=== PATIENT | female | born 1930 | race Caucasian/White ===

== ENCOUNTER → 2020-09-19 | Outpatient (CLI) | payer MEDICARE ==
[~2020-09-19] VITALS: Ht 154.9 cm; Wt 72.1 kg
[~2020-09-19] MED LIST: LOPRESSOR50 MG PO
== END ==
LOC: OPSV 14:00
DX: S22.000A Wedge compression fracture of unspecified thoracic vertebra, initial encounter for closed fracture (principal); S32.000A Wedge compression fracture of unspecified lumbar vertebra, initial encounter for closed fracture; Z13.820 Encounter for screening for osteoporosis; X58.XXXA Exposure to other specified factors, initial encounter
CPT/HCPCS: 96372

== ENCOUNTER 2021-02-24 07:34 | Emergency (ER) | payer MEDICARE ==
[2021-02-24 08:20] LABS: HEMOGLOBIN 12.3 gm/dl (12.3-15.3); RED BLOOD COUNT 3.95 M/UL (4.00-5.10); WHITE BLOOD COUNT 7.4 K/UL (4.5-11.0)
== END 2021-02-24 10:45 | disposition home or self-care (01) ==
LOC: ER1 07:34
PROVIDERS: Physician Assistant
DX: M19.032 Primary osteoarthritis, left wrist (principal); I48.91 Unspecified atrial fibrillation; Z90.49 Acquired absence of other specified parts of digestive tract; Z90.89 Acquired absence of other organs
CPT/HCPCS: 29125; 73110; 80048; 84550; 85025; 85652; 86140; 99283

== ENCOUNTER → 2021-03-20 | Outpatient (CLI) | payer MEDICARE ==
[~2021-03-20] VITALS: Ht 154.9 cm; Wt 72.1 kg
== END ==
LOC: OPSV 10:53
DX: Z13.820 Encounter for screening for osteoporosis (principal); S32.000A Wedge compression fracture of unspecified lumbar vertebra, initial encounter for closed fracture
CPT/HCPCS: 96372

== ENCOUNTER → 2022-01-08 | Outpatient (CLI) | payer MEDICARE ==
[~2022-01-08] VITALS: Ht 154.9 cm; Wt 72.6 kg
== END ==
LOC: OPSV 11:23
DX: M81.0 Age-related osteoporosis without current pathological fracture (principal); M48.54XA Collapsed vertebra, not elsewhere classified, thoracic region, initial encounter for fracture; M48.56XA Collapsed vertebra, not elsewhere classified, lumbar region, initial encounter for fracture
CPT/HCPCS: 96372

== ENCOUNTER → 2022-02-10 | Outpatient (CLI) | payer MEDICARE | LOC: KOH-I 10:35 | DX: M54.9 Dorsalgia, unspecified (principal); M62.838 Other muscle spasm; M47.814 Spondylosis without myelopathy or radiculopathy, thoracic region | CPT/HCPCS: 72070 ==

== ENCOUNTER → 2022-03-18 | Outpatient (CLI) | payer MEDICARE | LOC: EXRD 12:53 | DX: M79.604 Pain in right leg (principal); R60.9 Edema, unspecified | CPT/HCPCS: 93971 ==

== ENCOUNTER → 2022-05-11 | Outpatient (CLI) | payer MEDICARE | LOC: HEART 5 08:00 | DX: Z01.810 Encounter for preprocedural cardiovascular examination (principal); R06.02 Shortness of breath; I49.3 Ventricular premature depolarization; I10 Essential (primary) hypertension; I49.9 Cardiac arrhythmia, unspecified | CPT/HCPCS: 78452; A9502; J2785 ==